=== PATIENT | female | born 1990 | race American Indian/Alaskan Native ===

== ENCOUNTER 2018-03-14 17:28 | Emergency (ER) | payer OTHER ==
--- NOTE | 2018-03-14 17:42 | ED PDOC ---
"Arrival/HPI - General Time Seen by Provider: 03/14/18 17:41 Historian: Patient - History of Present Illness Narrative History of Present Illness (Text): 03/14/18 18:08 Patient is a 28 year old female with a past medical history of asthma presenting to the emergency room with a complaint of right sided low back pain for 1 year. The pain is constant (5 out of 10) with periods of intermittent increases in intensity (up to 10). The pain is sharp in nature and radiates around to her groin. She has been experiencing increased urinary frequency. The urine recently changed color to dark yellow/orange and has a sugary smell. She reports diarrhea and vomiting about 2-3 times a week for many years. She has intermittent chills. Denies fever, nausea, chest pain, shortness of breath, runny nose, sore throat, cough, numbness or tingling. Time/Duration: Other (1 year) Symptom Onset: Gradual Symptom Course: Intermittent Quality: Stabbing Past Medical History - Provider Review Nursing Documentation Reviewed: Yes Family/Social History Family/Social History: No Known Family HX Allergies/Home Meds Allergies/Adverse Reactions: Allergies No Known Allergies Allergy (Verified 03/14/18 17:46) Review of Systems - Physician Review All systems were reviewed & negative as marked: Yes - Review of Systems Constitutional: Normal. absent: Fatigue, Fevers Eyes: Normal. absent: Vision Changes ENT: Normal. absent: Sore Throat, Rhinorrhea Respiratory: Normal. absent: SOB, Cough, Wheezing Cardiovascular: Normal. absent: Chest Pain, Palpitations Gastrointestinal: Abdominal Pain, Diarrhea, Vomiting. absent: Stool Changes, Constipation, Nausea, Appetite Changes, Hematochezia Genitourinary Female: Frequency. absent: Dysuria, Hematuria Musculoskeletal: Normal Skin: Normal. absent: Rash Neurological: Normal. absent: Headache, Dizziness, Focal Weakness, Disequilibrium Endocrine: Polyuria. absent: Diaphoresis, Polydipsia Hemo/Lymphatic: Normal. absent: Adenopathy Psychiatric: Normal Physical Exam Vital Signs Reviewed: Yes Vital Signs Temp Pulse Resp BP Pulse Ox 03/14/18 17:42 8.8 F L 73 16 109/71 99 Temperature: Afebrile (98.8F) Blood Pressure: Normal Pulse: Regular Respiratory Rate: Normal Appearance: Positive for: Well-Appearing, Non-Toxic, Comfortable Pain Distress: None Mental Status: Positive for: Alert and Oriented X 3 - Systems Exam Head: Present: Atraumatic, Normocephalic Pupils: Present: PERRL Extroacular Muscles: Present: EOMI Conjunctiva: Present: Normal Mouth: Present: Moist Mucous Membranes Pharnyx: Present: Normal. No: ERYTHEMA, EXUDATE Nose (External): Present: Atraumatic Neck: Present: Normal Range of Motion Respiratory/Chest: Present: Clear to Auscultation, Good Air Exchange. No: Respiratory Distress, Accessory Muscle Use Cardiovascular: Present: Regular Rate and Rhythm, Normal S1, S2. No: Murmurs Abdomen: Present: Tenderness (suprapubic>epigastric). No: Distention, Peritoneal Signs, Rebound, Guarding Back: Present: CVA Tenderness (left sided), Paraspinal Tenderness (right sided) . No: Midline Tenderness Upper Extremity: Present: Normal Inspection, NORMAL PULSES. No: Cyanosis, Edema Lower Extremity: Present: Normal Inspection, NORMAL PULSES. No: Edema, CALF TENDERNESS Neurological: Present: GCS=15, Speech Normal, Motor Func Grossly Intact Skin: Present: Warm, Dry, Normal Color. No: Rashes Psychiatric: Present: Alert, Oriented x 3, Normal Insight, Normal Concentration Medical Decision Making ED Course and Treatment: Comfortably appearing female speaking in full sentences. Vitals stable. Labs CT abd/pel w/o - r/o stones Toradol for pain 03/14/18 19:35 Blood work normal, normal WBC UA - protein>300, pos nitrates, trace leuks (positive blood - currently menstruating) Rocephin given Patient reports continued but improving abdominal pain, given Tylenol * patient noted to be laying comfortably on stretcher with significant other, with laptop on their laps. 03/14/18 20:11 Patient is resting comfortably, states she is feeling better. CT abd/pel w/o: no acute findings. Discussed results with patient. Will d/c patient home with abx for UTI. Patient is to follow up with PMD within 2-3 days. Patient states she understands and agrees. - Lab Interpretations Lab Results: 03/14/18 18:23 03/14/18 18:23 Lab Results 03/14/18 18:23: Sodium 142, Potassium 4.1, Chloride 107, Carbon Dioxide 25, Anion Gap 15, BUN 13, Creatinine 0.7, Est GFR ( Amer) > 60, Est GFR (Non- Af Amer) > 60, Random Glucose 91, Calcium 9.1, Magnesium 1.8, Total Bilirubin 0.4, AST 27, ALT 14, Alkaline Phosphatase 54, Total Protein 7.5, Albumin 4.1, Globulin 3.4, Albumin/Globulin Ratio 1.2, Lipase 54 03/14/18 18:23: Urine Color Dark red, Urine Appearance Bloody, Urine pH 6.0, Ur Specific Melvin >= 1.030, Urine Protein >=300 H, Urine Glucose (UA) Negative, Urine Ketones Negative, Urine Blood Large H, Urine Nitrate Positive H, Urine Bilirubin Small H, Urine Urobilinogen 1.0 H, Ur Leukocyte Esterase Trace H, Urine RBC Tntc, Urine WBC 10 - 15, Ur Epithelial Cells 3 - 4, Urine Bacteria Small 03/14/18 18:23: WBC 7.3, RBC 4.10, Hgb 12.2, Hct 36.1, MCV 88.0, MCH 29.8, MCHC 33.8, RDW 13.7, Plt Count 302, MPV 9.8, Gran % 58.8, Lymph % (Auto) 32.7, [place] % (Auto) 5.1, Eos % (Auto) 3.3, Baso % (Auto) 0.1, Gran # 4.31, Lymph # (Auto) 2.4, [place] # (Auto) 0.4, Eos # (Auto) 0.2, Baso # (Auto) 0.01 I have reviewed the lab results: Yes - RAD Interpretation Narrative RAD Interpretations (Text): 03/14/18 19:54 [facility] Preliminary Radiology Report Call: [phone] assistance Online chat: [email or web address] Patient Name: MARIAJOSE MORLEY Institution Name: [place] [address] Study Type: CT ABDOMEN/PELVIS WO Ordered As: CT ABD PELVIS W O PO OR IV CONT Date of Dictation: 14 Mar 2018 EDT Date of Exam: 14 Mar 2018 EDT Account Number: Patient : [id number] Patient Location: ED Manager Risk Management: Referring Physician: Boone SCHOFIELD This interpretation is based upon the receipt of 580 images. Page 1 of 2 EXAM: CT Abdomen and Pelvis Without Intravenous Contrast CLINICAL HISTORY: 28 years old, female; Pain; Abdominal pain; Acute; Additional info: Right sided low back pain TECHNIQUE: Axial computed tomography images of the abdomen and pelvis without intravenous contrast. All CT scans at this facility use at least one of these dose optimization techniques: automated exposure control; mA and/or kV adjustment per patient size (includes targeted exams where dose is matched to clinical indication); or iterative reconstruction. Coronal and sagittal reformatted images were created and reviewed. COMPARISON: No relevant prior studies available. FINDINGS: Limitations: Limited evaluation due to lack of IV contrast. Lung bases: Unremarkable. No mass. No consolidation. ABDOMEN: Liver: Unremarkable. Gallbladder and bile ducts: Unremarkable. No calcified stones. No ductal dilation. Pancreas: Pancreas is limited. No ductal dilation. Spleen: Unremarkable. No splenomegaly. Adrenals: Unremarkable. No mass. Kidneys and ureters: Unremarkable. No obstructing stones. No hydronephrosis. Stomach and bowel: Unremarkable. No obstruction. No mucosal thickening. Focal air noted adjacent to the gallbladder on image 25 is probably within the bowel. PELVIS: Appendix: No findings to suggest acute appendicitis. Bladder: The bladder wall is slightly thickened. No stones. MARIAJOSE MORLEY | Preliminary Radiology Report TRACK GRINDER OPERATOR (QA) DISCREPANCY? If there is a discrepancy between the preliminary and final interpretation, please notify [email or web address] Patients via [email or web address]. If you do not have access to our QA portal, call our QA team at [phone] CONFIDENTIALITY STATEMENT This report is intended only for the use of the referring physician, and only in accordance with law, If you received this in error, call [phone] Page 2 of 2 Reproductive: Unremarkable as visualized. ABDOMEN and PELVIS: Intraperitoneal space: Unremarkable. No free air. No significant fluid collection. Bones/joints: No acute fracture. No dislocation. Soft tissues: Unremarkable. Vasculature: Unremarkable. No abdominal aortic aneurysm. Lymph nodes: Unremarkable. No enlarged lymph nodes. IMPRESSION: No acute findings. Thank you for allowing us to participate in the care of your patient. Dictated and Authenticated by: Radha Cardenas MD 03/14/2018 7:51 PM Eastern Time ([place] & [place]) Radiology Orders: 03/14/18 18:03 ABD & PELVIS W/O PO OR IV CONT [CT] Stat Negative Spotter: Radiologist - Medication Orders Current Medication Orders: Ceftriaxone Sodium (Rocephin 1 Gram Ivpb) 1 gm in 100 mls @ 100 mls/hr IVPB STAT STA PRN Reason: Protocol Stop: 03/14/18 20:34 Last Admin: 03/14/18 19:42 Dose: 100 mls/hr eMAR Start Stop Document 03/14/18 19:42 SF (Rec: 03/14/18 19:42 [place] [email or web address] Intravenous Solution Start Date 03/14/18 Start Time 19:42 End Date 03/14/18 End time 20:42 Total Infusion Time 60 Discontinued Medications Acetaminophen (Tylenol 325mg Tab) 650 mg PO STAT STA Stop: 03/14/18 19:33 Last Admin: 03/14/18 19:41 Dose: 650 mg MAR Pain/Vitals Document 03/14/18 19:41 SF (Rec: 03/14/18 19:42 [place] [email or web address] Pain Reassessment Is This A Pain ReAssessment? Yes Sleep Is patient sleeping during reassessment? No Presence of Pain Presence of Pain Yes Ceftriaxone Sodium (Rocephin 1 Gram Ivpb) 1 gm in 100 mls @ 100 mls/hr IVPB DAILY BR[place] PRN Reason: Protocol Ketorolac Tromethamine (Toradol) 60 mg IM STAT STA Stop: 03/14/18 18:05 Last Admin: 03/14/18 18:17 Dose: 60 mg MAR Pain Assessment Document 03/14/18 18:17 SF (Rec: 03/14/18 18:18 SF [email or web address]) Pain Reassessment Is this a pain reassessment? Yes Sleep Is patient sleeping during reassessment? No Presence of Pain Presence of Pain Yes IM Administration Charges Document 03/14/18 18:17 SF (Rec: 03/14/18 18:18 SF [email or web address]) Injection Site MAR Injection Site Left Deltoid Charges for Administration # of IM Administrations 1 Disposition/Present on Arrival - Present on Arrival Any Indicators Present on Arrival: No History of DVT/PE: No History of Uncontrolled Diabetes: No Urinary Catheter: No History of Decub. Ulcer: No - Disposition Have Diagnosis and Disposition been Completed?: Yes Diagnosis: UTI (urinary tract infection) Disposition: HOME/ ROUTINE Disposition Time: 20:14 Patient Plan: Discharge Condition: IMPROVED Discharge Instructions (ExitCare): Urinary Tract Infection, Adult (DC) Prescriptions: Cephalexin [Keflex] 500 mg PO Q12H #14 capsule Referrals: PCP,NO [Primary Care Provider] - Follow up with primary"
[2018-03-14 17:46] VITALS: RESP 16
[2018-03-14 18:57] LABS: ALB/GLOB RATIO 1.2 (1.1-1.8); ALBUMIN 4.1 g/dL (3.0-4.8); ALT/SGPT 14 U/L (7-56); AST/SGOT 27 U/L (14-36); BLOOD UREA NITROGEN 13 mg/dL (7-21); CALCIUM 9.1 mg/dL (8.4-10.5); GFR AFRICAN-AMERICAN > 60; GFR NON-AFRICAN AMERICAN > 60; LIPASE 54 U/L (23-300)
[2018-03-14 19:01] LABS: BASO # 0.01 K/mm3 (0.0-2.0); BASO % 0.1 % (0.0-3.0); EOS # 0.2 (0.0-0.7); EOS % 3.3 % (1.5-5.0); GRAN # 4.31 (1.4-6.5); GRAN % 58.8 % (50.0-68.0); HEMOGLOBIN 12.2 g/dL (12.0-16.0); LYMPH # 2.4 (1.2-3.4); LYMPH % 32.7 % (22.0-35.0); MEAN CORPUSCULAR HEMOGLOBIN 29.8 pg (25.0-35.0); MEAN CORPUSCULAR HGB CONC 33.8 g/dl (31.0-37.0); MEAN PLATELET VOLUME 9.8 fl (7.0-11.0); MONO # 0.4 (0.1-0.6); MONO % 5.1 % (1.0-6.0); RBC 4.1 10^6/uL (3.5-6.1); RED CELL DISTRIBUTION WIDTH 13.7 % (11.5-14.5); WHITE BLOOD COUNT 7.3 10^3/ul (4.5-11.0)
[2018-03-14 19:10] LABS: URINE BILIRUBIN SMALL (NEGATIVE); URINE BLOOD LARGE (NEGATIVE); URINE GLUCOSE (UA) NEGATIVE (NEGATIVE); URINE LEUKOCYTE ESTERASE TRACE Leu/uL (NEGATIVE); URINE PROTEIN >=300 mg/dL (<30 mg/dL)
[2018-03-14 19:16] LABS: URINE APPEARANCE BLOODY (CLEAR); URINE COLOR DARK RED (YELLOW)
[2018-03-14 19:18] LABS: URINE BACTERIA SMALL (NEG); URINE RBC TNTC /hpf (0-2)
[2018-03-14] MEDS ORDERED: cefTRIAXone 1 gm 1 GM/100 ML BAG IVPB STA (19:35)
[2018-03-14 20:28] VITALS: TEMP 98.8
[2018-03-14 20:30] VITALS: BP 122/84; PULSE 75; O2SAT 100
--- NOTE | 2018-03-15 09:30 | CT ---
Date of service: 03/14/2018 PROCEDURE: CT Abdomen and Pelvis without intravenous contrast HISTORY: right sided low back pain COMPARISON: None. TECHNIQUE: Without contrast.. Contrast dose: Radiation dose: Total exam DLP = 228 mGy-cm. This CT exam was performed using one or more of the following dose reduction techniques: Automated exposure control, adjustment of the mA and/or kV according to patient size, and/or use of iterative reconstruction technique. FINDINGS: LOWER THORAX: Unremarkable. LIVER: Unremarkable. No gross lesion or ductal dilatation. GALLBLADDER AND BILE DUCTS: Unremarkable. PANCREAS: Unremarkable. No gross lesion or ductal dilatation. SPLEEN: Unremarkable. ADRENALS: Unremarkable. No mass. KIDNEYS AND URETERS: Unremarkable. No hydronephrosis. No solid mass. VASCULATURE: Unremarkable. No aortic aneurysm. BOWEL: Unremarkable. No obstruction. No gross mural thickening. APPENDIX: Unremarkable. Normal appendix. PERITONEUM: Unremarkable. No free fluid. No free air. LYMPH NODES: Unremarkable. No enlarged lymph nodes. BLADDER: Unremarkable. REPRODUCTIVE: Unremarkable. BONES: No acute fracture. OTHER FINDINGS: None. IMPRESSION: Unremarkable non contrast enhanced CT of the abdomen and pelvis.
[2018-03-15] MEDS ORDERED: cefTRIAXone 1 gm 1 GM/100 ML BAG IVPB SCH (10:00)
== END 2018-03-14 20:31 | disposition home or self-care (01) ==
LOC: ED 17:28
DX: N39.0 Urinary tract infection, site not specified (principal)
CPT/HCPCS: 74176; 80053; 81001; 83690; 83735; 85025; 87086; 96365; 96372; 99285; J0696; J1885